=== PATIENT | female | born 1980 | race Caucasian/White ===

== ENCOUNTER 2019-03-03 16:19 | Emergency (ER) | payer OTHER ==
[2019-03-03] MEDS ORDERED: NA CHLORIDE 0.9% 1,000 ML ONE (16:48)
[2019-03-03] MEDS ORDERED: ONDANSETRON 4 MG/2 ML VIAL ONE (16:48)
[2019-03-03] MEDS ORDERED: MORPHINE 4 MG/ML SYR ONE (16:48)
[2019-03-03] MEDS ORDERED: FAMOTIDINE 20 MG/2 ML VIAL IV ONE (16:48)
[2019-03-03 17:08] LABS: Urine Blood NEGATIVE (NEG); Urine Glucose NEGATIVE (NEG); Urine Protein NEGATIVE (NEG); Urine Specific Gravity >1.030 (1.005-1.030)
[2019-03-03 17:13] LABS: Absolute Lymphocytes (CBC) 3.1 K/uL (0.7-4.9); Basophils % 0.8 % (0-1.3); Hematocrit 41.7 % (36.0-45.0); Lymphocytes % 35.8 % (15.3-44.8); MPV 8.7 fL (7.6-11.3); RBC Red Blood Cell Count 4.52 M/uL (3.86-4.86)
[2019-03-03 17:31] LABS: ALT/SGPT 35 U/L (12-78); AST/SGOT 16 U/L (15-37); Albumin 3.8 g/dL (3.4-5.0); Alkaline Phosphatase 65 U/L (45-117); BUN Blood Urea Nitrogen 10 mg/dL (7-18); Bicarbonate 26 mmol/L (21-32); Bilirubin Direct < 0.1 mg/dL (0-0.2); Bilirubin Total 0.2 mg/dL (0.2-1.0); Glucose Level 127 mg/dL (74-106); Lipase 224 U/L (73-393); Potassium 3.9 mmol/L (3.5-5.1); Protein, Total 7.4 g/dL (6.4-8.2); Sodium Level 142 mmol/L (136-145)
--- NOTE | 2019-03-03 17:39 | RAD REPORT ---
EXAM DESCRIPTION: US - Abdomen Exam Limited - 03/03/2019 5:33 pm CLINICAL HISTORY: ABD PAIN COMPARISON: <Comparisons> FINDINGS: The gallbladder demonstrates 16 mm stone inferiorly near the gallbladder neck. The gallbla dder is mildly distended. No pericholecystic fluid or gallbladder wall thickening. The common bile du ct is normal measuring 4 mm. The liver demonstrates no findings of intrahepatic biliary dilatation. IMPRESSION: Cholelithiasis.
--- NOTE | 2019-03-03 17:57 | EDPHYS ---
Physician Documentation [facility] Name: Audrey Obando Age: 38 yrs Sex: Female : 1980 Arrival Date: 03/03/2019 Time: 16:20 Bed 8 Private MD: ED Physician Matias Jackson HPI: 03/03 16:32 This 38 yrs old Female presents to ER via Ambulatory with complaints of cp Abdominal Pain, Epigastric Pain. 16:32 The patient presents with abdominal pain in the epigastric area, in the right upper cp quadrant. 16:32 Onset: The symptoms/episode began/occurred 2 hour(s) ago. The symptoms radiate to right cp back. Associated signs and symptoms: Pertinent positives: nausea, Pertinent negatives: blood in stools, chest pain, constipation, diarrhea, dysuria, fever, shortness of breath, vomiting. The symptoms are described as constant. Severity of pain: in the emergency department the pain is unchanged despite home interventions. Historical: - Allergies: 16:25 Bactrim; la1 - PMHx: 16:25 None; la1 - PSHx: 16:25 None; la1 - Immunization history:: Adult Immunizations up to date. - Social history:: Smoking status: Patient/guardian denies using tobacco. - Ebola Screening: : No symptoms or risks identified at this time. ROS: 16:35 Constitutional: Negative for body aches, chills, fever, poor PO intake. cp 16:35 Eyes: Negative for injury, pain, redness, and discharge. cp 16:35 ENT: Negative for drainage from ear(s), ear pain, sore throat, difficulty swallowing, difficulty handling secretions. 16:35 Cardiovascular: Negative for chest pain, palpitations. 16:35 Respiratory: Negative for cough, shortness of breath, wheezing. 16:35 Abdomen/GI: Positive for abdominal pain, nausea, Negative for vomiting, diarrhea, constipation, anorexia, black/tarry stool, rectal bleeding. 16:35 Back: Positive for radiated pain, of the right mid back. 16:35 : Negative for urinary symptoms. 16:35 Skin: Negative for rash. 16:35 Neuro: Negative for altered mental status, headache, weakness. 16:35 All other systems are negative. Exam: 16:40 Constitutional: The patient appears in no acute distress, alert, awake, cp non-diaphoretic, non-toxic, well developed, well nourished, obese, uncomfortable. 16:40 Head/Face: Normocephalic, atraumatic. cp 16:40 Eyes: Periorbital structures: appear normal, Conjunctiva: normal, no exudate, no injection, Sclera: no appreciated abnormality, Lids and lashes: appear normal, bilaterally. 16:40 ENT: External ear(s): are unremarkable, Nose: is normal, Mouth: Lips: moist, Oral mucosa: pink and intact, moist, Posterior pharynx: is normal, airway is patent, no erythema, no exudate. 16:40 Chest/axilla: Inspection: normal, Palpation: is normal, no crepitus, no tenderness. 16:40 Cardiovascular: Rate: normal, Rhythm: regular. 16:40 Respiratory: the patient does not display signs of respiratory distress, Respirations: normal, no use of accessory muscles, no retractions, no splinting, no tachypnea, labored breathing, is not present, Breath sounds: are clear throughout, no decreased breath sounds, no stridor, no wheezing. 16:40 Abdomen/GI: Inspection: obese Bowel sounds: active, all quadrants, Palpation: soft, in all quadrants, moderate abdominal tenderness, in the epigastric area and right upper quadrant, rebound tenderness, is not appreciated, voluntary guarding, is elicited in the epigastric area and right upper quadrant. 16:40 Back: pain, that is moderate, of the right mid back, ROM is normal. Vital Signs: 16:25 Pulse 89; Resp 16; Temp 98.4; Pulse Ox 98% on R/A; Weight 97.52 kg; Height 5 ft. 3 in. la1 (160.02 cm); 16:27 BP 174 / 114; la1 17:15 BP 166 / 108; Pulse 68; Resp 20; Pulse Ox 100% ; sv 19:00 BP 142 / 89; Pulse 70; Resp 16; Temp 98.3; Pulse Ox 100% on R/A; sg 16:25 Body Mass Index 38.09 (97.52 kg, 160.02 cm) la1 MDM: 16:28 Patient medically screened. ailyn 17:00 Differential diagnosis: cholecystitis, Cholelithiasis, pancreatitis, Peptic Ulcer cp Disease, Perf. Duodenal Ulcer, Perf. Gastric Ulcer, Ureterolithiasis, urinary tract infection. 17:55 Data reviewed: vital signs, nurses notes, lab test result(s), radiologic studies, cp ultrasound, and as a result, I will discharge patient. 17:55 Counseling: I had a detailed discussion with the patient and/or guardian regarding: the cp historical points, exam findings, and any diagnostic results supporting the discharge/admit diagnosis, lab results, radiology results, the need for outpatient follow up, for definitive care, a general surgeon, to return to the emergency department if symptoms worsen or persist or if there are any questions or concerns that arise at home. Response to treatment: the patient's symptoms have markedly improved after treatment, VSS. Pain and nausea improved. Will discharge to home for continued monitoring. 03/03 16:34 Order name: Basic Metabolic Panel; Complete Time: 17:32 cp 03/03 17:32 Interpretation: Normal except: CL 110; GLUC 127; GFR 63. 03/03 16:34 Order name: CBC with Diff; Complete Time: 17:22 03/03 16:34 Order name: Creatinine for Radiology; Complete Time: 17:32 cp 03/03 16:34 Order name: Hepatic Function; Complete Time: 17:32 cp 03/03 17:32 Interpretation: Normal except: GLOB 3.6. 03/03 16:34 Order name: Lipase; Complete Time: 17:33 cp 03/03 17:33 Interpretation: Normal except: LIP 224. 03/03 16:53 Order name: Urine Dipstick--Ancillary (enter results); Complete Time: 17:22 [facility] 03/03 16:34 Order name: US Abdomen Limited: RUQ/epigastric area 03/03 16:53 Order name: Urine --Ancillary (enter results); Complete Time: 17:22 [facility] 03/03 16:34 Order name: IV Saline Lock; Complete Time: 17:33 03/03 16:34 Order name: Labs collected and sent; Complete Time: 16:45 cp 03/03 16:34 Order name: Urine Dipstick-Ancillary (obtain specimen); Complete Time: 16:52 cp 03/03 16:34 Order name: Urine Test (obtain specimen); Complete Time: 16:52 cp 03/03 16:34 Order name: NPO; Complete Time: 16:45 cp Administered Medications: 16:44 Drug: NS 0.9% 1000 ml Route: IV; Rate: 1 bolus; Site: right antecubital; sv 16:44 Drug: Zofran 4 mg Route: IVP; Site: right antecubital; sv 16:46 Drug: morphine 2 mg {Note: Pt stated she did not want anymore pain medication because sv of how it made her feel..} Route: IVP; Site: right antecubital; 16:48 Drug: Pepcid 20 mg Route: IVP; Site: right antecubital; sv 18:40 Drug: Bentyl 20 mg Route: PO; sg 18:40 Drug: GI Cocktail without - (Maalox Suspension 30 ml, Lidocaine Liquid 2 % 15 sg ml) Route: PO; 18:40 Drug: Hydrocodone-Acetaminophen (7.5 mg-325 mg) 1 tabs Route: PO; sg Disposition: 03/04 07:11 Co-signature as Attending Physician, Matias Jackson MD I agree with the assessment and ailyn plan of care. Disposition: 03/03/19 17:56 Discharged to Home. Impression: Cholelithiasis. - Condition is Stable. - Discharge Instructions: Cholelithiasis. - Prescriptions for Bentyl 20 mg Oral Tablet - take 2 tablet by ORAL route every 6 hours As needed; 40 tablet. Zofran 4 mg Oral Tablet - take 1 tablet by ORAL route every 12 hours As needed; 20 tablet. Tramadol 50 mg Oral Tablet - take 1 tablet by ORAL route every 8 hours as needed; 12 tablet. - Medication Reconciliation Form, Thank You Letter, Antibiotic Education, Prescription Opioid Use form. - Follow up: Dae Vazquez MD; When: 1 - 2 days; Reason: Recheck today's complaints. - Problem is new. - Symptoms have improved. Signatures: Dispatcher [employer] EDMariposa Lozoya RN RN sv Gay, Steven, RN RN sg Anderson, Corey, MD MD cha Attema, Lee RN RN la1 Matias Stratton PA PA cp Antunez, Elena, RN RN ea Corrections: (The following items were deleted from the chart) 03/03 19:15 17:56 03/03/2019 17:56 Discharged to Home. Impression: Cholelithiasis. Condition is ea Stable. Forms are Medication Reconciliation Form, Thank You Letter, Antibiotic Education, Prescription Opioid Use. Follow up: Dae Vazquez; When: 1 - 2 days; Reason: Recheck today's complaints. Problem is new. Symptoms have improved. cp
--- NOTE | 2019-03-03 17:57 | ER ---
Nurse's Notes [facility] Name: Audrey Obando Age: 38 yrs Sex: Female : 1980 Arrival Date: 03/03/2019 Time: 16:20 Bed 8 Private MD: Diagnosis: Cholelithiasis Presentation: 03/03 16:24 Presenting complaint: Patient states: RUQ pain that started a couple hours ago, pain is la1 so bad I am nausous. Transition of care: patient was not received from another setting of care. Onset of symptoms was March 03, 2019. Risk Assessment: Do you want to hurt yourself or someone else? Patient reports no desire to harm self or others. Initial Sepsis Screen: Does the patient meet any 2 criteria? No. Patient's initial sepsis screen is negative. Does the patient have a suspected source of infection? No. Patient's initial sepsis screen is negative. Care prior to arrival: None. 16:24 Method Of Arrival: Ambulatory la1 16:24 Acuity: SAKINA 3 la1 Historical: - Allergies: 16:25 Bactrim; la1 - PMHx: 16:25 None; la1 - PSHx: 16:25 None; la1 - Immunization history:: Adult Immunizations up to date. - Social history:: Smoking status: Patient/guardian denies using tobacco. - Ebola Screening: : No symptoms or risks identified at this time. Screenin:40 Abuse screen: Denies threats or abuse. Denies injuries from another. Nutritional sv screening: No deficits noted. Tuberculosis screening: No symptoms or risk factors identified. Fall Risk None identified. Assessment: 16:35 General: Appears in no apparent distress. uncomfortable, well groomed, well developed, sv Behavior is calm, cooperative, appropriate for age. Pain: Complains of pain in epigastric area Pain currently is 10 out of 10 on a pain scale. Pain began 4 hours ago. Is continuous. Neuro: Level of Consciousness is awake, alert, obeys commands, Oriented to person, place, time, situation, Moves all extremities. Full function Gait is steady. Respiratory: Respiratory effort is even, unlabored, Respiratory pattern is regular, symmetrical. GI: Abdomen is obese, Abd is soft X 4 quads Abdomen is tender to palpation in epigastric area Reports epigastric pain, nausea. Derm: Skin is pink, warm \T\ dry. 16:40 Reassessment: Patient appears in no apparent distress at this time. sg Vital Signs: 16:25 Pulse 89; Resp 16; Temp 98.4; Pulse Ox 98% on R/A; Weight 97.52 kg; Height 5 ft. 3 in. la1 (160.02 cm); 16:27 BP 174 / 114; la1 17:15 BP 166 / 108; Pulse 68; Resp 20; Pulse Ox 100% ; sv 19:00 BP 142 / 89; Pulse 70; Resp 16; Temp 98.3; Pulse Ox 100% on R/A; sg 16:25 Body Mass Index 38.09 (97.52 kg, 160.02 cm) la1 ED Course: 16:20 Patient arrived in ED. as 16:25 Triage completed. la1 16:25 Matias Stratton PA is PHCP. cp 16:25 Matias Jackson MD is Attending Physician. cp 16:26 Arm band placed on right wrist. la1 16:40 Patient has correct armband on for positive identification. Placed in gown. Bed in low sv position. Call light in reach. Adult w/ patient. Side rails up X 1. Pulse ox on. NIBP on. Door closed. Head of bed elevated. 16:40 Inserted saline lock: 20 gauge in right antecubital area, using aseptic technique. sv Blood collected. Flushed right antecubital with 5 ml normal saline. 16:44 Burke Arias, BEN is Primary Nurse. sg 17:34 US Abdomen Limited: RUQ/epigastric area In Process Unspecified. EDMS 17:54 Dae Vazquez MD is Referral Physician. cp 19:00 No provider procedures requiring assistance completed. IV discontinued, intact, sg bleeding controlled, No redness/swelling at site. Pressure dressing applied. Administered Medications: 16:44 Drug: NS 0.9% 1000 ml Route: IV; Rate: 1 bolus; Site: right antecubital; sv 16:44 Drug: Zofran 4 mg Route: IVP; Site: right antecubital; sv 16:46 Drug: morphine 2 mg {Note: Pt stated she did not want anymore pain medication because sv of how it made her feel..} Route: IVP; Site: right antecubital; 16:48 Drug: Pepcid 20 mg Route: IVP; Site: right antecubital; sv 18:40 Drug: Bentyl 20 mg Route: PO; sg 18:40 Drug: GI Cocktail without - (Maalox Suspension 30 ml, Lidocaine Liquid 2 % 15 sg ml) Route: PO; 18:40 Drug: Hydrocodone-Acetaminophen (7.5 mg-325 mg) 1 tabs Route: PO; sg Outcome: 17:56 Discharge ordered by MD. cp 19:00 Discharged to home ambulatory, with family. sg 19:00 Condition: good 19:00 Discharge instructions given to patient, family, Instructed on discharge instructions, follow up and referral plans. no drinking with medication, no driving heavy equipment, medication usage, safety practices, Demonstrated understanding of instructions, follow-up care, medications, Prescriptions given X 3. 19:15 Patient left the ED. elizabeth Signatures: Dispatcher [employer] EDMS Mariposa Skinner RN RN Burke Arias RN RN sg Martinez, Amelia as Attema, Lee RN BEN la1 Matias Stratton PA PA cp Antunez, Elena, RN RN ea
[2019-03-03] MEDS ORDERED: HYDROCODONE/APAP 7.5/325 MG TAB ONE (18:50)
[2019-03-03] MEDS ORDERED: MAGNE/ALUM HYDROXD 30 ML UCUP ONE (18:50)
[2019-03-03] MEDS ORDERED: DICYCLOMINE HCL 10 MG CAP ONE (18:50)
[2019-03-03] MEDS ORDERED: LIDOCAINE VISCOUS 2% SOLN 15 ML UDC ONE (18:51)
== END 2019-03-03 19:15 | disposition home or self-care (01) ==
LOC: ER 16:19
DX: K80.20 Calculus of gallbladder without cholecystitis without obstruction (principal); Z88.1 Allergy status to other antibiotic agents
CPT/HCPCS: 85025; 80048; 36415; 81025; 80076; 81003; 83690; 76705; 96375; 96374; 99284; J7030; J2405

== ENCOUNTER 2019-03-16 08:28 | Day surgery (SDC) | payer OTHER ==
[2019-03-15 10:13] LABS: Absolute Lymphocytes (CBC) 2.8 K/uL (0.7-4.9); Basophils % 1.1 % (0-1.3); Hematocrit 40.7 % (36.0-45.0); Lymphocytes % 41.2 % (15.3-44.8); MPV 9.2 fL (7.6-11.3); RBC Red Blood Cell Count 4.36 M/uL (3.86-4.86)
[2019-03-15 10:37] LABS: Potassium 3.8 mmol/L (3.5-5.1)
[2019-03-15 10:40] LABS: ALT/SGPT 34 U/L (12-78); AST/SGOT 10 U/L (15-37); Albumin 3.8 g/dL (3.4-5.0); Alkaline Phosphatase 62 U/L (45-117); Amylase Level 46 U/L (25-115); Bilirubin Direct < 0.1 mg/dL (0-0.2); Bilirubin Total 0.4 mg/dL (0.2-1.0); Lipase 173 U/L (73-393); Protein, Total 7.2 g/dL (6.4-8.2)
[2019-03-16] MEDS ORDERED: Ringers Lactate 1,000 ML IV ONE ×2 (09:15→10:30)
[2019-03-16] MEDS ORDERED: FENTANYL CITR 100 MCG/2 ML ONE (09:31)
[2019-03-16] MEDS ORDERED: ROCURONIUM 50 MG/5 ML VIAL IV ONE (09:31)
[2019-03-16] MEDS ORDERED: LIDOCAINE 2% MPF 5 ML VIAL ONE (09:31)
[2019-03-16] MEDS ORDERED: dexAMETHasone 10 MG/ML VIAL ONE (09:31)
[2019-03-16] MEDS ORDERED: GLYCOPYRROLATE 0.2 MG/ML SYR ONE (09:31)
[2019-03-16] MEDS ORDERED: PROPOFOL 200 MG/20 ML VIAL IV ONE (09:31)
[2019-03-16] MEDS ORDERED: MIDAZOLAM HCL 2 MG/2 ML INJ ONE (09:31)
[2019-03-16] MEDS: CEFOXITIN/SWI 1gm 1 GM/10 ML SYR ONE ×2 (09:42→09:55)
[2019-03-16] MEDS ORDERED: KETOROLAC 30 MG/ML INJ ONE (10:38)
[2019-03-16] MEDS ORDERED: MORPHINE 10 MG/ML VIAL ONE (10:41)
--- NOTE | 2019-03-16 10:45 | P.BOP ---
Preoperative diagnosis: symptomatic cholelithiasis Postoperative diagnosis: same Primary procedure: Laparoscopic cholecystectomy Sponge Maker: TIBURCIO JOHNS (OREMAN) Estimated blood loss: <10cc Specimen: gb Findings: as above Anesthesia: General Complications: None Transferred to: Recovery Room Condition: Good
[2019-03-16] MEDS ORDERED: ONDANSETRON 4 MG/2 ML VIAL ONE (11:00)
[2019-03-16] MEDS ORDERED: HYDROMORPHONE HCL 1 MG/ML INJ ONE (11:22)
[2019-03-16] MEDS ORDERED: CODEINE 30MG/APAP 300MG TAB ONE (12:17)
--- NOTE | 2019-03-17 01:23 | OP ---
Date of Procedure: 03/16/2019 Surgeon: Andrew Hines MD Pastry Baker: TORIN Kirby Preoperative Diagnoses: Symptomatic cholelithiasis, right upper quadrant abdominal pain. Postoperative Diagnoses: Symptomatic cholelithiasis, right upper quadrant abdominal pain. Procedure: Laparoscopic cholecystectomy. Estimated Blood Loss: Less than 10 cc. Specimen: Gallbladder. Finding: As above. Anesthesia: General plus local. Indications: This is the case of a 38-year-old patient, who comes to us with above diagnosis with th e procedure dictated above. Benefits, alternatives, and risks were explained to the patient, which i ncluded but not limited to infection, bleeding, damage to adjacent structures, anesthesia complicatio n, choledocholithiasis, bile leak, pancreatitis, KS, and even . She also understands this may n ot relieve any symptoms. She might need more than one surgical intervention. She understood, signed a consent. Description Of Procedure: Patient was brought to the operating room, placed in supine position. Ane sthesia was done without complication. Abdominal area was prepped and draped in a sterile fashion. Marcaine 0.5% was injected for local anesthetic, followed by sharp incision of the skin in the infrau mbilical region. Incision was carried down to fascia, which was opened under direct vision. Periton eum was encountered, opened under direct vision. Vicryl #1 placed inside the fascia. Christiano trocar was carefully introduced. No bleeding was obtained. We placed 3 more trocars, 5 mm each, one of the m in the right upper quadrant. I put a grasper in the fundus of the gallbladder, another grasper in the infundibulum, retracted the gallbladder in the inferolateral fashion exposing the triangle of Junior ot, obtaining critical view of safety. Cystic duct and cystic artery were clearly isolated free circ umferentially and the connection between those and the gallbladder were clearly identified. I procee ded to ligate those by using at least 3 clips proximal, 1 clip distal, and ligation in the middle. S david was done with the cystic artery. No bile leak. No bleeding. The gallbladder was removed from t he liver using Bovie cauterizer and removed from abdominal cavity using an EndoCatch through the umbi lical incision. The area was inspected once again. No bile leak. No bleeding. After irrigation an d suction, clips were intact with no bile leak and no bleeding. At that moment, I proceeded to remov e the trocars under direct vision, deflated the pneumoperitoneum, closed the fascia with #1 Vicryl, i rrigated the subcutaneous tissue and closed that with 3-0 chromic and the skin in a subcuticular fash ion with 3-0 chromic and a Steri-Strip on top. Sponge count and instrument count were correct. Marisela ent tolerated the procedure well. Patient was sent to Recovery in stable condition. DHEERAJ/ECHO Voice ID: [id number] Report ID: [id number]
--- NOTE | 2019-03-17 01:26 | DS ---
Date of Discharge: 03/16/2019 Diagnoses: Acute cholecystis, symptomatic cholelithiasis. Procedure: Laparoscopic cholecystectomy. Disposition: Home. Activity: As tolerated. No heavy lifting. Followup: Follow up in my office in 1 week. Call for appointment [phone]. Keep area dry for 48 ho urs, then may shower. Keep Steri-Strips intact. Medications: See orders. DHEERAJ/ECHO Voice ID: [id number] Report ID: [id number]
== END 2019-03-16 13:20 | disposition home or self-care (01) ==
LOC: OR 08:28
PROVIDERS: ATTEND Surgery
PROC: 0FT44ZZ Resection of Gallbladder, Percutaneous Endoscopic Approach (ICD-10-PCS; principal; 2019-03-16 10:45)
DX: K80.10 Calculus of gallbladder with chronic cholecystitis without obstruction (principal); E78.00 Pure hypercholesterolemia, unspecified; Z88.3 Allergy status to other anti-infective agents
CPT/HCPCS: 85025; 80048; 36415; 82150; 81025; 80076; 88304; 83690; 47562; J2704; J2250; J3010; J1100; J1170; J2405

== ENCOUNTER 2019-08-01 15:18 | Emergency (ER) | payer OTHER ==
--- NOTE | 2019-08-01 15:57 | RAD REPORT ---
EXAM DESCRIPTION: CT - Head C Spine Mpr Wo Con - 08/01/2019 3:44 pm CLINICAL HISTORY: Head and neck injury status post fall. Head and neck pain COMPARISON: None. TECHNIQUE: Computed axial tomography of the head and cervical spine was obtained. Sagittal and coronal reconstruction was performed. All CT scans are performed using dose optimization technique as appropriate and may include automated exposure control or mA/KV adjustment according to patient size. FINDINGS: Mild cerebellar tonsillar ectopia An intracranial bleed is not seen. The ventricles are normal in caliber. An extra-axial fluid collect ion is not noted.Fluid within the visualized sinuses and mastoids is not seen A cervical fracture is not visualized. No dislocation is noted. Spondylosis is present IMPRESSION: No acute intracranial abnormality is seen. A cervical fracture is not visualized. If the patient continues to have symptoms to suggest intracra nial /spinal cord pathology then MRI would be recommended
--- NOTE | 2019-08-01 16:17 | RAD REPORT ---
EXAM DESCRIPTION: CT - Facial Bones W/ Mpr - 08/01/2019 3:44 pm CLINICAL HISTORY: Facial injury status post fall with facial pain COMPARISON: none TECHNIQUE: Computed axial tomography of the face was obtained. Coronal and sagittal reconstruction w as performed. All CT scans are performed using dose optimization technique as appropriate and may include automated exposure control or mA/KV adjustment according to patient size. FINDINGS: A fracture is not seen. A TMJ dislocation is not noted. The globes are intact. Fluid within the sinuses is not seen. IMPRESSION: Negative for a facial fracture.
--- NOTE | 2019-08-01 16:37 | ER ---
Nurse's Notes [facility] Name: Audrey Obando Age: 39 yrs Sex: Female : 1980 Arrival Date: 08/01/2019 Time: 15:19 Bed 20 Private MD: Diagnosis: Superficial injury of head;Fall on same level from slipping, tripping and stumbling Presentation: 08/01 15:23 Presenting complaint: Patient states: i tripped in the restroom at work and fell on my mg2 head and hit the floor tile. positive LOC for 2 sec. Transition of care: patient was not received from another setting of care. Mechanism of Injury: resulted from a fall, from a standing position. Onset of symptoms was August 01, 2019 at 14:30. Risk Assessment: Do you want to hurt yourself or someone else? Patient reports no desire to harm self or others. Initial Sepsis Screen: Does the patient meet any 2 criteria? No. Patient's initial sepsis screen is negative. Does the patient have a suspected source of infection? No. Patient's initial sepsis screen is negative. Care prior to arrival: None. 15:23 Method Of Arrival: Ambulatory mg2 15:23 Acuity: SAKINA 3 mg2 Triage Assessment: 15:30 General: Appears in no apparent distress. comfortable, Behavior is cooperative, bp appropriate for age, anxious. Pain: Complains of pain in right [place]. EENT: No deficits noted. Neuro: Level of Consciousness is awake, alert, obeys commands, Oriented to person, place, time, situation, Appropriate for age Reports headache. Cardiovascular: No deficits noted. Respiratory: No deficits noted. GI: No signs and/or symptoms were reported involving the gastrointestinal system. : No signs and/or symptoms were reported regarding the genitourinary system. Derm: No deficits noted. Musculoskeletal: No deficits noted. 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 - Social history:: Smoking status: Patient denies any tobacco usage or history of. Patient uses alcohol, only on a social basis. Patient/guardian denies using street drugs, IV drugs. - Ebola Screening: : No symptoms or risks identified at this time. Screenin:30 Abuse screen: Denies threats or abuse. Denies injuries from another. bp 15:30 Nutritional screening: No deficits noted. Tuberculosis screening: No symptoms or risk bp factors identified. Fall Risk Fall in past 12 months (25 points). No secondary diagnosis (0 pts). No IV (0 pts). Ambulatory Aid- None/Bed Rest/Nurse Assist (0 pts). Gait- Normal/Bed Rest/Wheelchair (0 pts) Mental Status- Oriented to own ability (0 pts). Total Nolasco Fall Scale indicates Low Risk Score (25-44 pts). Fall prevention measures have been instituted. Side Rails Up X 2 Placed close to Nursing Station Frequent Obs/Assesments occuring Family Present and informed to notify staff if they need to leave bedside As available Patient and Family Educated on Fall Prevention Program and strategies. Assessment: 15:30 General: SEE TRIAGE NOTE. bp 16:42 Reassessment: PT D/C HOME AMBULATORY WITH FAMILY, DX WITH SUPERFICIAL HEAD INJURY. bp Vital Signs: 15:25 BP 133 / 91; Pulse 77; Resp 18; Temp 98.3; Pulse Ox 100% on R/A; Weight 90.72 kg; mg2 Height 5 ft. 3 in. (160.02 cm); Pain 6/10; 16:30 BP 131 / 85; Pulse 75; Resp 17; Temp 98.5; Pulse Ox 99% ; bp 15:25 Body Mass Index 35.43 (90.72 kg, 160.02 cm) mg2 [place] Coma Score: 15:23 Eye Response: spontaneous(4). Verbal Response: oriented(5). Motor Response: obeys mg2 commands(6). Total: 15. 16:00 Eye Response: spontaneous(4). Verbal Response: oriented(5). Motor Response: obeys kb commands(6). Total: 15. NIH Stroke Scale Scores: 16:00 NIHSS Score: 0 kb ED Course: 15:19 Patient arrived in ED. ds1 15:25 Triage completed. mg2 15:28 Arm band placed on. mg2 15:30 Patient has correct armband on for positive identification. Bed in low position. Call bp light in reach. Side rails up X2. 15:30 No provider procedures requiring assistance completed. Patient did not have IV access bp during this emergency room visit. 15:32 [facility] kb 15:32 Chicho Lau MD is Attending Physician. kb 15:45 CT Head C Spine In Process Unspecified. EDMS 15:45 CT Facial Bones W/O Con In Process Unspecified. EDMS 15:56 Fredrick Mauro, RN is Primary Nurse. mg2 Administered Medications: No medications were administered Outcome: 15:30 Discharged to home ambulatory, with family. bp 15:30 Condition: stable 15:30 Discharge instructions given to patient, Instructed on discharge instructions, follow up and referral plans. Demonstrated understanding of instructions, follow-up care. 16:34 Discharge ordered by MD. kb 16:47 Patient left the ED. bp NIH Stroke Scale - NIH Stroke Score Date: 08/01/2019 Time: 16:00 Total Score = 0 1a. Level of Consciousness (LOC) - 0(Alert) 1b. Level of Consciousness (LOC) (Year \T\ Age) - 0(Both) 1c. LOC Commands (Open \T\ Closes Eyes/Forcer Maker) - 0(Both) 2. Best Gaze (Lateral Gaze Paresis) - 0(Normal) 3. Visual Field Loss - 0(No visual loss) 4. Facial Palsy - 0(Normal) 5a. Left Arm: Motor (10-second hold) - 0(No drift) 5b. Right Arm: Motor (10-second hold) - 0(No drift) 6a. Left Leg: Motor (5-second hold - always test supine) - 0(No drift) 6b. Right Leg: Motor (5-second hold - always test supine) - 0(No drift) 7. Limb Ataxia (finger/nose \T\ heel/cottrell - test with eyes open) - 0(Absent) 8. Sensory Loss (pinprick arms/legs/face) - 0(Normal) 9. Best Language: Aphasia (description/naming/reading) - 0(No aphasia) 10. Dysarthria (speech clarity - read or repeat words) - 0(Normal) 11. Extinction and Inattention (visual/tactile/auditory/spatial/personal) - 0(No abnormality) Initials: kb Signatures: Dispatcher [employer] EDDC Sarah Frederick FNP-C FNP-Ckb Sanford, Demi ds1 Vj Latham, RN RN bp Fredrick Mauro, RN RN mg2
--- NOTE | 2019-08-01 16:37 | EDPHYS ---
Physician Documentation [facility] Name: Audrey Obando Age: 39 yrs Sex: Female : 1980 Arrival Date: 08/01/2019 Time: 15:19 Bed 20 Private MD: ED Physician Chicho Lau HPI: 08/01 16:01 This 39 yrs old Female presents to ER via Ambulatory with complaints of Head kb Injury-Adult, Fall Injury. 16:01 The patient has not experienced similar symptoms in the past. The patient has not kb recently seen a physician. 16:02 Details of fall: The patient fell from an upright position. Onset: The symptoms/episode kb began/occurred just prior to arrival. Associated injuries: The patient sustained injury to the head, hematoma, pain. Severity of symptoms: At their worst the symptoms were moderate, in the emergency department the symptoms are unchanged. Pt reports she tripped over a tile in the bathroom and fell forward hitting her head on the wall, then on the ground. "I think I may have blacked out for a couple of seconds.". 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 - Social history:: Smoking status: Patient denies any tobacco usage or history of. Patient uses alcohol, only on a social basis. Patient/guardian denies using street drugs, IV drugs. - Ebola Screening: : No symptoms or risks identified at this time. ROS: 16:00 Constitutional: Negative for fever, chills, and weight loss, Eyes: Negative for injury, kb pain, redness, and discharge, ENT: Negative for injury, pain, and discharge, Neck: Negative for injury, pain, and swelling, Cardiovascular: Negative for chest pain, palpitations, and edema, Respiratory: Negative for shortness of breath, cough, wheezing, and pleuritic chest pain, Abdomen/GI: Negative for abdominal pain, nausea, vomiting, diarrhea, and constipation, Back: Negative for injury and pain, MS/Extremity: Negative for injury and deformity, Skin: Negative for injury, rash, and discoloration. 16:00 Neuro: Positive for headache, loss of consciousness. Exam: 16:00 Constitutional: This is a well developed, well nourished patient who is awake, alert, kb and in no acute distress. Eyes: Pupils equal round and reactive to light, extra-ocular motions intact. Lids and lashes normal. Conjunctiva and sclera are non-icteric and not injected. Cornea within normal limits. Periorbital areas with no swelling, redness, or edema. ENT: Nares patent. No nasal discharge, no septal abnormalities noted. Tympanic membranes are normal and external auditory canals are clear. Oropharynx with no redness, swelling, or masses, exudates, or evidence of obstruction, uvula midline. Mucous membranes moist. Neck: Trachea midline, no thyromegaly or masses palpated, and no cervical lymphadenopathy. Supple, full range of motion without nuchal rigidity, or vertebral point tenderness. No Meningismus. Chest/axilla: Normal chest wall appearance and motion. Nontender with no deformity. No lesions are appreciated. Cardiovascular: Regular rate and rhythm with a normal S1 and S2. No gallops, murmurs, or rubs. Normal PMI, no JVD. No pulse deficits. Respiratory: Lungs have equal breath sounds bilaterally, clear to auscultation and percussion. No rales, rhonchi or wheezes noted. No increased work of breathing, no retractions or nasal flaring. Abdomen/GI: Soft, non-tender, with normal bowel sounds. No distension or tympany. No guarding or rebound. No evidence of tenderness throughout. Back: No spinal tenderness. No costovertebral tenderness. Full range of motion. Skin: Warm, dry with normal turgor. Normal color with no rashes, no lesions, and no evidence of cellulitis. MS/ Extremity: Pulses equal, no cyanosis. Neurovascular intact. Full, normal range of motion. Neuro: Awake and alert, GCS 15, oriented to person, place, time, and situation. Cranial nerves II-XII grossly intact. Motor strength 5/5 in all extremities. Sensory grossly intact. Cerebellar exam normal. Normal gait. 16:00 Head/face: Noted is no obvious of injury or deformity except hematoma, that is mild, that is moderate, of the right orthodoxy. Vital Signs: 15:25 BP 133 / 91; Pulse 77; Resp 18; Temp 98.3; Pulse Ox 100% on R/A; Weight 90.72 kg; mg2 Height 5 ft. 3 in. (160.02 cm); Pain 6/10; 16:30 BP 131 / 85; Pulse 75; Resp 17; Temp 98.5; Pulse Ox 99% ; bp 15:25 Body Mass Index 35.43 (90.72 kg, 160.02 cm) mg2 NIH Stroke Scale Scores: 16:00 NIHSS Score: 0 kb [place] Coma Score: 15:23 Eye Response: spontaneous(4). Verbal Response: oriented(5). Motor Response: obeys mg2 commands(6). Total: 15. 16:00 Eye Response: spontaneous(4). Verbal Response: oriented(5). Motor Response: obeys kb commands(6). Total: 15. MDM: 15:32 Patient medically screened. kb 16:00 Data reviewed: vital signs, nurses notes. Data interpreted: Pulse oximetry: on room air kb is 100 %. Interpretation: normal. Counseling: I had a detailed discussion with the patient and/or guardian regarding: the historical points, exam findings, and any diagnostic results supporting the discharge/admit diagnosis, radiology results, the need for outpatient follow up, a family practitioner, to return to the emergency department if symptoms worsen or persist or if there are any questions or concerns that arise at home. 08/01 15:32 Order name: CT Head C Spine; Complete Time: 16:04 kb 08/01 15:36 Order name: CT Facial Bones W/O Con; Complete Time: 16:22 kb Administered Medications: No medications were administered Disposition: 08/02 08:02 Co-signature as Attending Physician, Chicho Lau MD I agree with the assessment and tw4 plan of care. Disposition: 08/01/19 16:34 Discharged to Home. Impression: Superficial injury of head, Fall on same level from slipping, tripping and stumbling. - Condition is Stable. - Discharge Instructions: Hematoma, [id number], Head Injury, Adult, [id number]. - Medication Reconciliation Form, Thank You Letter, Antibiotic Education, Prescription Opioid Use form. - Follow up: Emergency Department; When: As needed; Reason: Worsening of condition. Follow up: Private Physician; When: 2 - 3 days; Reason: Recheck today's complaints, Continuance of care, Re-evaluation by your physician. NIH Stroke Scale - NIH Stroke Score Date: 08/01/2019 Time: 16:00 Total Score = 0 1a. Level of Consciousness (LOC) - 0(Alert) 1b. Level of Consciousness (LOC) (Year \\T\\ Age) - 0(Both) 1c. LOC Commands (Open \\T\\ Closes Eyes/Glaze Mixer) - 0(Both) 2. Best Gaze (Lateral Gaze Paresis) - 0(Normal) 3. Visual Field Loss - 0(No visual loss) 4. Facial Palsy - 0(Normal) 5a. Left Arm: Motor (10-second hold) - 0(No drift) 5b. Right Arm: Motor (10-second hold) - 0(No drift) 6a. Left Leg: Motor (5-second hold - always test supine) - 0(No drift) 6b. Right Leg: Motor (5-second hold - always test supine) - 0(No drift) 7. Limb Ataxia (finger/nose \\T\\ heel/cottrell - test with eyes open) - 0(Absent) 8. Sensory Loss (pinprick arms/legs/face) - 0(Normal) 9. Best Language: Aphasia (description/naming/reading) - 0(No aphasia) 10. Dysarthria (speech clarity - read or repeat words) - 0(Normal) 11. Extinction and Inattention (visual/tactile/auditory/spatial/personal) - 0(No abnormality) Initials: kb Signatures: Dispatcher [employer] EDNE Sarah Frederick, CLAIMS COUNSEL-C CLAIMS COUNSEL-CkVj Cuellar, BEN RN Chicho Mohamud MD MD tw4 Fredrick Mauro RN RN mg2 Corrections: (The following items were deleted from the chart) 08/01 16:47 16:34 08/01/2019 16:34 Discharged to Home. Impression: Superficial injury of bp head; Fall on same level from slipping, tripping and stumbling. Condition is Stable. Discharge Instructions: Hematoma, [id number], Head Injury, Adult, [id number]. Forms are Medication Reconciliation Form, Thank You Letter, Antibiotic Education, Prescription Opioid Use. Follow up: Emergency Department; When: As needed; Reason: Worsening of condition. Follow up: Private Physician; When: 2 - 3 days; Reason: Recheck today's complaints, Continuance of care, Re-evaluation by your physician. kb
[2019-08-01 19:51] VITALS: BP 131/85; TEMP 98.5; O2SAT 99
== END 2019-08-01 16:47 | disposition home or self-care (01) ==
LOC: ER 15:18
DX: S00.93XA Contusion of unspecified part of head, initial encounter (principal); W01.198A Fall on same level from slipping, tripping and stumbling with subsequent striking against other object, initial encounter; Y93.89 Activity, other specified; Y92.9 Unspecified place or not applicable; F41.9 Anxiety disorder, unspecified; Z88.1 Allergy status to other antibiotic agents
CPT/HCPCS: 70450; 70486; 72125; 76377; 99283

== ENCOUNTER 2020-10-21 16:53 | Emergency (ER) | payer OTHER ==
--- OUTSIDE RECORDS SUMMARY | 2020-10-21 16:55 | XMS REPORT | Continuity of Care Document ---
:1980 Author Organization [facility] t Address [address] [place] [address] [address]. [address] [place] [address] Care Team Providers Name Role Phone Lab, Fam Pob I Attending Clinician Unavailable Problems This patient has no known problems. Allergies, Adverse Reactions, Alerts This patient has no known allergies or adverse reactions. Medications This patient has no known medications. Procedures This patient has no known procedures. Encounters Start End Encounter Admission Attending Care Care Encounter Source Date/Time Date/Time Type Type Clinicians Facility Department ID 2020-03-01 2020-03-01 Laboratory Lab, [facility] [id number] 14:04:36 14:21:17 Only Fam Pob I [facility] [id number] [place] [id number] Jose Angel [id number] [address] Results This patient has no known results.
--- NOTE | 2020-10-21 17:47 | RAD REPORT ---
EXAM DESCRIPTION: RAD - Ankle Left 3 View - 10/21/2020 5:38 pm CLINICAL HISTORY: Pain;Swelling COMPARISON: No comparisons FINDINGS: Moderate soft tissue swelling is seen adjacent to the lateral malleolus. Small plantar germania caneal spur is seen. No acute fracture or dislocation.
--- NOTE | 2020-10-21 17:52 | ER ---
Nurse's Notes [facility] Name: Audrey Obando Age: 40 yrs Sex: Female : 1980 Arrival Date: 10/21/2020 Time: 16:55 Bed 15 Private MD: Diagnosis: Sprain of unspecified ligament of left ankle Presentation: 10/21 17:05 Chief complaint: Patient states: left ankle injury after jumping rope and rolled her sv ankle last night. Coronavirus screen: Client denies travel out of the [place] in the last 14 days. At this time, the client does not indicate any symptoms associated with coronavirus-19. Ebola Screen: No symptoms or risks identified at this time. Risk Assessment: Do you want to hurt yourself or someone else? Patient reports no desire to harm self or others. Onset of symptoms was October 20, 2020. 17:05 Method Of Arrival: Wheelchair sv 17:05 Acuity: SAKINA 4 sv 17:06 Initial Sepsis Screen: Does the patient meet any 2 criteria? No. Patient's initial sv sepsis screen is negative. Does the patient have a suspected source of infection? No. Patient's initial sepsis screen is negative. Triage Assessment: 17:05 General: Appears in no apparent distress. uncomfortable, Behavior is calm, cooperative, sv appropriate for age. Pain: Complains of pain in left lateral ankle. Neuro: Level of Consciousness is awake, alert, obeys commands, Oriented to person, place, time, situation. Respiratory: Respiratory effort is even, unlabored. Musculoskeletal: Swelling present in left lateral ankle. 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 - Social history:: Smoking status: Patient denies any tobacco usage or history of. Screenin:31 Abuse screen: Denies threats or abuse. Nutritional screening: No deficits noted. ll1 Tuberculosis screening: No symptoms or risk factors identified. Fall Risk None identified. Gait- Impaired (20 pts.). Total Nolasco Fall Scale indicates No Risk (0-24 pts). Assessment: 17:11 Reassessment: Received VO from Dr Wing for xray. sv 18:00 Reassessment: No changes from previously documented assessment. Patient and/or family ll1 updated on plan of care and expected duration. Pain level reassessed. Patient is alert, oriented x 3, equal unlabored respirations, skin warm/dry/pink. 18:31 General: Appears in no apparent distress. Behavior is calm, cooperative, appropriate ll1 for age. Pain: Complains of pain in left ankle. Musculoskeletal: Circulation, motion, and sensation intact. Capillary refill < 3 seconds. Vital Signs: 17:06 BP 125 / 87; Pulse 76; Resp 18; Temp 98.6(TE); Pulse Ox 99% ; Weight 74.84 kg; Height 5 sv ft. 3 in. (160.02 cm); Pain 7/10; 18:29 BP 123 / 90; Pulse 59; Resp 17; Pain 4/10; ll1 17:06 Body Mass Index 29.23 (74.84 kg, 160.02 cm) sv ED Course: 16:55 Patient arrived in ED. ds1 17:05 Arm band placed on. sv 17:06 Triage completed. sv 17:27 Victorino Dukes, SANDER is PHCP. pm1 17:27 Solomon Wing MD is Attending Physician. pm1 17:28 Terry Knight, BEN is Primary Nurse. ll1 17:38 Ankle Left 3 View XRAY In Process Unspecified. EDMS 18:16 Verbal reassurance given. jp3 18:16 Crutch training done. [place] wrap to left ankle Orthoglass splint: stirrup splint applied jp3 on left leg. 18:32 No provider procedures requiring assistance completed. Patient did not have IV access ll1 during this emergency room visit. 18:33 Patient has correct armband on for positive identification. Bed in low position. Call ll1 light in reach. Side rails up X 1. Pulse ox on. NIBP on. Administered Medications: 17:59 Drug: [place] (HYDROcodone-acetaminophen) 5 mg-325 mg 1 tabs Route: PO; ll1 18:29 Follow up: Response: No adverse reaction; Pain is decreased; RASS: Alert and Calm (0) ll1 Outcome: 17:51 Discharge ordered by . pm1 18:32 Discharged to home via wheelchair. ll1 18:32 Condition: stable 18:32 Discharge instructions given to patient, Instructed on discharge instructions, follow up and referral plans. medication usage, crutch walking, Demonstrated understanding of instructions, follow-up care, medications, crutch walking, splint care, Prescriptions given X 1. 18:33 Patient left the ED. ll1 Signatures: Dispatcher [employer] EDMariposa Lozoya RN RN Xiomy Marquez ds1 Victorino Dukes, SANDER INVESTMENT UNDERWRITER pm1 Mayank Painter jp3 Terry Knight RN RN ll1 Corrections: (The following items were deleted from the chart) 17:08 17:06 Pulse 76bpm; Resp 18bpm; Pulse Ox 99%; Temp 98.6F; 74.84 kg; Height 5 ft. 3 in.; sv BMI: 29.2; Pain 7/10; sv
--- NOTE | 2020-10-21 17:52 | EDPHYS ---
Physician Documentation [facility] Name: Audrey Obando Age: 40 yrs Sex: Female : 1980 Arrival Date: 10/21/2020 Time: 16:55 Bed 15 Private MD: ED Physician Solomon Wing HPI: 10/21 17:57 This 40 yrs old Female presents to ER via Wheelchair with complaints of Ankle pm1 Injury. 17:57 The patient presents with pain, that is acute, swelling. The complaints affect the left pm1 ankle. Onset: The symptoms/episode began/occurred today. 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 The patient can partially bear weight on the affected extremity. the patient is able to ambulate. Associated signs and symptoms: Pertinent positives: swelling, Pertinent negatives: numbness, tingling. Modifying factors: The symptoms are alleviated by elevation of extremity, the symptoms are aggravated by weight bearing, movement. Severity of symptoms: in the emergency department the symptoms are unchanged. The patient has not experienced similar symptoms in the past. The patient has not recently seen a physician. Patient was jump roping on a parachutist/combatant diver qualified and she mis-stepped and rolled her ankle. 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 - Social history:: Smoking status: Patient denies any tobacco usage or history of. ROS: 17:57 Constitutional: Negative for fever, chills, and weight loss, Cardiovascular: Negative pm1 for chest pain, palpitations, and edema, Respiratory: Negative for shortness of breath, cough, wheezing, and pleuritic chest pain. 17:57 Skin: Negative for injury, rash, and discoloration. 17:57 Neuro: Negative for headache, weakness, numbness, tingling, and seizure. 17:57 MS/extremity: Positive for pain, swelling, tenderness, of the left lateral ankle, Negative for decreased range of motion, deformity. Exam: 17:57 Constitutional: This is a well developed, well nourished patient who is awake, alert, pm1 and in no acute distress. Head/Face: Normocephalic, atraumatic. 17:57 Skin: Warm, dry with normal turgor. Normal color with no rashes, no lesions, and no evidence of cellulitis. 17:57 Cardiovascular: Rate: normal, Rhythm: regular, Pulses: no pulse deficits are appreciated. 17:57 Respiratory: Exam negative for acute changes, respiratory distress, shortness of breath. 17:57 Musculoskeletal/extremity: Extremities: grossly normal except: noted in the left lateral ankle: pain, swelling, tenderness, There is no evidence of decreased ROM, deformity. 17:57 Neuro: Exam negative for acute changes, Orientation: is normal, Mentation: is normal, Motor: is normal, moves all fours. Vital Signs: 17:06 BP 125 / 87; Pulse 76; Resp 18; Temp 98.6(TE); Pulse Ox 99% ; Weight 74.84 kg; Height 5 sv ft. 3 in. (160.02 cm); Pain 7/10; 18:29 BP 123 / 90; Pulse 59; Resp 17; Pain 4/10; ll1 17:06 Body Mass Index 29.23 (74.84 kg, 160.02 cm) sv MDM: 17:29 Patient medically screened. pm1 17:51 Data reviewed: vital signs. Data interpreted: Pulse oximetry: on room air is 99 %. pm1 Interpretation: normal. Counseling: I had a detailed discussion with the patient and/or guardian regarding: the historical points, exam findings, and any diagnostic results supporting the discharge/admit diagnosis, radiology results, the need for outpatient follow up, for definitive care, a orthopedic surgeon, to return to the emergency department if symptoms worsen or persist or if there are any questions or concerns that arise at home. 10/21 17:11 Order name: Ankle Left 3 View XRAY; Complete Time: 17:50 sv 10/21 17:45 Order name: Ice pack; Complete Time: 17:47 pm1 10/21 17:46 Order name: Splint - Ankle: Orthoglass: Stirrup; Complete Time: 18:16 pm1 10/21 17:46 Order name: Crutches; Complete Time: 18:16 pm1 Administered Medications: 17:59 Drug: Bushnell (HYDROcodone-acetaminophen) 5 mg-325 mg 1 tabs Route: PO; ll1 18:29 Follow up: Response: No adverse reaction; Pain is decreased; RASS: Alert and Calm (0) ll1 Disposition: 18:57 Co-signature as Attending Physician, Solomon Wing MD. rn Disposition: 10/21/20 17:51 Discharged to Home. Impression: Sprain of unspecified ligament of left ankle. - Condition is Stable. - Discharge Instructions: Ankle Sprain, Cast or Splint Care, Adult, Crutch Use. - Prescriptions for Tylenol- Codeine #3 300-30 mg Oral Tablet - take 2 tablets by ORAL route every 4-6 hours As needed; 20 tablet. - Medication Reconciliation Form, Thank You Letter, Antibiotic Education, Prescription Opioid Use form. - Follow up: Emergency Department; When: As needed; Reason: Worsening of condition. Follow up: Private Physician; When: 2 - 3 days; Reason: Recheck today's complaints, Continuance of care, Re-evaluation by your physician. - Problem is new. - Symptoms have improved. Signatures: Dispatcher [employer] EDMariposa Lozoya, RN Solomon Cantrell MD MD rn Marinas, Patrick, SANDER LAMBSKIN TRIMMER pm1 Terry Knight RN RN ll1 Corrections: (The following items were deleted from the chart) 18:33 17:51 10/21/2020 17:51 Discharged to Home. Impression: Sprain of unspecified ligament ll1 of left ankle. Condition is Stable. Forms are Medication Reconciliation Form, Thank You Letter, Antibiotic Education, Prescription Opioid Use. Follow up: Emergency Department; When: As needed; Reason: Worsening of condition. Follow up: Private Physician; When: 2 - 3 days; Reason: Recheck today's complaints, Continuance of care, Re-evaluation by your physician. Problem is new. Symptoms have improved. pm1
[2020-10-21] MEDS ORDERED: HYDROCODONE/APAP 5/325 MG TAB ONE (18:08)
[2020-10-21 19:02] VITALS: BP 125/87; TEMP 98.6; O2SAT 99
== END 2020-10-21 18:33 | disposition home or self-care (01) ==
LOC: ER 16:53
DX: S93.402A Sprain of unspecified ligament of left ankle, initial encounter (principal); X58.XXXA Exposure to other specified factors, initial encounter; Y93.56 Activity, jumping rope; Y92.008 Other place in unspecified non-institutional (private) residence as the place of occurrence of the external cause; Z88.1 Allergy status to other antibiotic agents
CPT/HCPCS: 99284

== ENCOUNTER 2023-05-28 06:04 | Day surgery (SDC) | payer BC ==
[2023-05-27 13:09] LABS: Absolute Lymphocytes (CBC) 2.4 K/uL (0.7-4.9); Hematocrit 40.4 % (36.0-45.0); Lymphocytes % 35.7 % (15.3-44.8); MCV 94.4 fL (80-100); Platelets 296 thou/uL (152-406); RBC Red Blood Cell Count 4.28 M/uL (3.86-4.86)
[2023-05-27 13:40] LABS: Specific Gravity 1.006 (1.005-1.030); Urine Bilirubin NEGATIVE (Negative); Urine Blood Negative (Negative); Urine Clarity Clear (Clear); Urine Color Colorless (Yellow); Urine Glucose NEGATIVE (Negative); Urine Protein NEGATIVE (Negative); Urine Urobilinogen Normal (Normal)
[2023-05-28] MEDS ORDERED: BUPIVACAINE 0.25% PF 30 ML VIAL ONE (06:31)
[2023-05-28] MEDS ORDERED: HYDROMORPHONE HCL 2 MG/ML inj ONE (06:50)
[2023-05-28] MEDS ORDERED: LIDOCAINE 2% MPF 5 ML VIAL ONE (06:55)
[2023-05-28] MEDS ORDERED: propofoL 200 MG/20 ML VIAL IV ONE (06:55)
[2023-05-28] MEDS ORDERED: SCOPOLAMINE HYDROBROMIDE PATCH TD ONE (06:56)
[2023-05-28] MEDS ORDERED: dexAMETHasone 4 MG/ML VIAL ONE (07:26)
[2023-05-28] MEDS ORDERED: GLYCOPYRROLATE 0.2 MG/ML SYR ONE ×2 (08:04→08:14)
[2023-05-28] MEDS ORDERED: EPHEDRINE SULF 50 MG/ML VIAL ONE (08:07)
[2023-05-28] MEDS ORDERED: KETOROLAC 30 MG/ML INJ ONE (08:13)
[2023-05-28] MEDS ORDERED: MEPERIDINE HCL 25 MG/ML SYR IM PRN (08:17)
[2023-05-28] MEDS ORDERED: HYDROCODONE/APAP 5/325 MG TAB PO PRN (08:17)
[2023-05-28] MEDS ORDERED: IBUPROFEN 200 MG TAB PO PRN (08:17)
[2023-05-28] MEDS ORDERED: PROMETHAZINE INJ 25 MG/ML AMP IV PRN (08:17)
--- NOTE | 2023-05-28 08:21 | P.BOP ---
Preoperative diagnosis: AUB-O/A, dysmenorrhea, PMDD Postoperative diagnosis: same Primary procedure: Hystersocopy ablation, laparoscopy bilateral salpingectomy [employer]: NONE,NONE Estimated blood loss: min Specimen: bilateral tubes Findings: normal ovaries and tubes, CL=6.5/W=4.6/P=167/T=51sec Anesthesia: General Complications: None Transferred to: Recovery Room Condition: Good
[2023-05-28] MEDS ORDERED: Mastisol Adhesive Liq ONE (08:24)
[2023-05-28] MEDS ORDERED: MONTELUKAST 10 MG TAB PO SCH (09:00)
[2023-05-28] MEDS ORDERED: FLUOXETINE 20 MG CAP PO SCH (09:00)
[2023-05-28] MEDS ORDERED: BUPROPION HCL XL 150 MG TAB PO SCH (09:00)
[2023-05-28] MEDS ORDERED: HYDROCODONE/APAP 5/325 MG TAB ONE (09:44)
[2023-05-28 09:48] VITALS: TEMP 97; O2SAT 95
--- NOTE | 2023-05-28 10:08 | OP ---
Date of Procedure: 05/28/2023 Surgeon: Josy Montejo MD Shipper: No assistants. Preoperative Diagnoses: Menorrhagia (AUB-L), dysmenorrhea, and premenstrual dysphoric disorder. Postoperative Diagnoses: Menorrhagia (AUB-L), dysmenorrhea, and premenstrual dysphoric disorder. Procedures Performed: Diagnostic hysteroscopy with endometrial ablation using NovaSure and diagnosti c laparoscopy with bilateral salpingectomy. Anesthesia: General endotracheal. Complications: No complications. Drains: No drains. Condition: Stable. Specimens: Bilateral tubes. Findings: Both tubes and ovaries were all mostly unremarkable. The uterine cavity length was 6.5, w idth 4.6, and power setting 164 brizuela and T equals 51 seconds for ablation. There was an excellent a blation effect once the procedure was completed with the hysteroscopy as it was visualized. Most of the intraperitoneal organs were unremarkable. No evidence of any endometriosis. Indications: The patient is a 43-year-old with menorrhagia and dysmenorrhea, evaluated with ultrasou nd and then with endometrial sampling that did not show any atypia or malignancy. Discussed about al l the different options including medical management with hormones, ablation IUD. The pat ient wanted to proceed with an ablation and with her dysmenorrhea, rule out any endometriosis and per form a bilateral salpingectomy. Once this was all consented, the patient was taken back to the OR. She was given 2 g of Ancef. SCDs were placed. Time-out was done. After general anesthesia was give n, she was placed in a dorsal lithotomy position using Chriss stirrups. Abdomen, vulva, vagina, and p erineum were prepped and draped in a sterile fashion. ChloraPrep was for the abdomen and Betadine fo r the lower part. Time-out was done. Arms were opposed. Positioning of the arms was checked. SCDs were started and procedure started. Procedure In Detail: Speculum was placed to expose the cervix. Anterior lip grasped with 2 Allis cl amps. The uterus was sounded to 10 cm, cervical length at 3.5, cavity length 6.5. It was determined and entered into the generator. The cervix was dilated to 18-South African and then the NovaSure device wa s introduced into it. After being primed, the fan was deployed and cavity measurements were entered into the generator. The os was occluded with occluder. On doing the cavity integrity test, there wa s an air leak. So, the cervix was clamped with another Allis clamp to narrow the external os and pre vent escape of the gas. cavity integrity test was passed, I started the ablation cycle. There was 1 interruption at 44 seconds with the gas leak, which was quickly adjusted by repositioning the tool at the cervix a nd the rest of the ablation cycle was completed without any problems. Diagnostic slimline hysteroscope was introduced into the uterine cavity and visualized. There was ex cellent ablation effect. The scope was removed. A diagnostic uterine manipulator was introduced and fixed in place. Britt was placed to drain the bladder and attached to a drainage bag. 1 cm infraumbilical curve in the midline was made through the skin, subcutaneous tissue, and fascia, which was tagged with 0 Vicryl sutures. Peritoneum entered bluntly. S-retractor was placed and afte r adequate insufflation, the site of entry was checked after the Christiano was placed. A 5 mm left lowe r quadrant suprapubic port was placed under direct vision after injecting with 0.25% Marcaine at skin and fascia at all 3 sites. The pelvic cavity was surveyed. Absent gallbladder on the top. The liver, diaphragmatic surfaces, o mentum all appeared to be completely unremarkable so as the ovaries and the uterus. LigaSure device was used to takedown the tubes and once these were handed out for permanent pathology, all the trocar s were removed, gas was desufflated after thorough irrigation and suction were performed. The Christiano was removed. The site of entry at the level of the fascia was closed with the help of 0 Vicryl sutu res tagged on the edges, tied to each other and an interrupted 5-0 Monocryl for skin closure interrup lois at all incision sites. Steri-Strips and bandages were placed. Britt was removed. Manipulator w as removed. She was recovered from anesthesia and taken to the PACU in stable condition. She will h ave a 1-week followup appointment and a 3-month appointment. BUBBA/ECHO Voice ID: [id number] Report ID: [id number]
[2023-05-28 11:29] VITALS: BP 130/80
== END 2023-05-28 10:30 | disposition home or self-care (01) ==
LOC: OR 06:04
PROVIDERS: ATTEND Obstetrics & Gynecology
PROC: 0UT74ZZ Resection of Bilateral Fallopian Tubes, Percutaneous Endoscopic Approach (ICD-10-PCS; 2023-05-28)
PROC: 0U5B8ZZ Destruction of Endometrium, Via Natural or Artificial Opening Endoscopic (ICD-10-PCS; principal; 2023-05-28 07:00)
DX: N92.1 Excessive and frequent menstruation with irregular cycle (principal); N94.6 Dysmenorrhea, unspecified; N94.3 Premenstrual tension syndrome; E66.9 Obesity, unspecified; Z68.34 Body mass index [BMI] 34.0-34.9, adult
CPT/HCPCS: 85025; 36415; 86900; 86850; 84703; 86901; 88302; 81003; 58563; 58661; J2704; J1100; J2001; J1170; 88305

== ENCOUNTER 2024-10-12 16:05 | Emergency (ER) | payer BC ==
--- OUTSIDE RECORDS SUMMARY | 2024-10-12 16:07 | XMS REPORT | Continuity of Care Document ---
Author Name Unknown Address [address] [place] [address] [facility] Address [address] [place] [address] Care Team Providers Care De Icer Installer Name Role Phone Pcp, Patient Does Not Have A Primary Care Physic tia Agueda Flanagan Attending Clinician Unavailable [email or web address] Attending Clinician Unavaila ble Doctor Unassigned, [place] Attending Clinician U navailable Lab, Adc Fam Pob I Attending Clinician Unavailab Jacque Rosales Attending Clinician [phone] JACQUE MOORE Attending Clinician Unavailable [email or web address] Admitting Clinician Unavaila ble Payers Payer Name Policy Type Policy Number Effective Date Expirati on Date Source [place] [id number] 2021 00:00:00 AETNA C1 [id number] Common [facility] AETNA C1 [id number] Common [facility] CIGNA II [id number] 2019 00:00:00 AETNA C1 [id number] Common [facility] Problems Condition Name Condition Details Condition Category Status Onset Date Resolution Date Last Treatment Date Treating Clinician Comments Source Obesity Obesity Problem Active 2022-07 00:00: 00 [facility] Dysmenorrh ea Dysmenorrh ea Problem Active 2022-07 00:00: 00 [facility] Premenstru al tension syndrome Premenstru al Tension Syndrome Problem Active 2022-07 00:00: 00 [facility] Premenstru al dysphoric disorder Premenstru al Dysphoric Disorder Problem Active 2022-07 00:00: 00 [facility] Excessive and frequent menstruati on Excessive and Frequent Menstruati on Problem Active 2022-07 00:00: 00 [facility] Excessive menstruati on with irregular cycle Excessive Menstruati on with Irregular Cycle Problem Active 2022-07 00:00: 00 [facility] Body mass index 30+ - obesity Body Mass Index 30+ - Obesity Problem Active 12-19 00:00: 00 [facility] Simple obesity Simple Obesity Problem Active 12-19 00:00: 00 [facility] Screening mammograph y Screening Mammograph y Problem Active 12-19 00:00: 00 [facility] Gynecologi germania examinatio n abnormal Gynecologi germania Examinatio n Abnormal Problem Active 12-19 00:00: 00 [facility] Allergies, Adverse Reactions, Alerts Allergy Name Allergy Type Status Severity Reaction(s) Onset Date Inactive Date Treating Clinician Comments Source No Known Contrast Allergie s DA Active U 08-06 00:00: 00 [facility] No Known Food Allergie s DA Active U 08-06 00:00: 00 [facility] No Known Other Allergie s DA Active U 08-06 00:00: 00 [facility] BACTRIM DA Active U THROAT SWELLED A CHILD 08-06 00:00: 00 [facility] sulfamet hoxazole DA Active U 2003-07 00:00: 00 [facility] trimetho prim DA Active U 2003-07 00:00: 00 [facility] NO KNOWN ALLERGIE S Drug Class Active [facility] Bactrim Allergy to substanc e Active [facility] Medical Social History Social Habit Start Date Stop Date Quantity Comments Source Sexual orientation U [facility] History of Tobacco Use [facility] Sex Assigned At [facility] Exposure to SARS-CoV-2 (event) 2020-01-31 00:00:00 2020-03-01 14:17:00 Not sure [facility] Smoking Status Start Date Stop Date Source Never Smoker [facility] Tobacco smoking consumption unknown [facility] Medications Ordered Medication Name Filled Medication Name Start Date Stop Date Current Medication? Ordering Clinician Indication Dosage Frequency Signature (SIG) Comments Components Source bupropion HCl XL 300 mg 24 hr tablet, extended release TAKE ONE (1) TABLET(S) BY MOUTH EVERY MORNING. bupropion HCl XL 300 mg 24 hr tablet, extended release TAKE ONE (1) TABLET(S) BY MOUTH EVERY MORNING. No bupropion HCl XL 300 mg 24 hr tablet, extended release TAKE ONE (1) TABLET(S) BY MOUTH EVERY MORNING. [facility] ibuprofen as needed ibuprofen as needed No ibuprofen as needed [facility] montelukast 10 mg tablet as needed for seasonal allergies montelukast 10 mg tablet as needed for seasonal allergies No montelukas t 10 mg tablet as needed for seasonal allergies [facility] Wellbutrin XL 300 MG Wellbutrin XL 300 MG No 1{table t_in_th e_morni ng} QD Wellbutrin XL 300 MG Wellbutrin XL 300 MG Wellbutrin XL 300 MG No 1{table t_in_th e_morni ng} QD Wellbutrin XL 300 MG Vital Signs Vital Name Observation Time Observation Value Comments S ace Body Weight 2023-09-25 00:00:00 201 [lb_av] [facility] BP Systolic 2023-09-25 00:00:00 139 mm[Hg] [facility] BP Diastolic 2023-09-25 00:00:00 85 mm[Hg] [facility] Height 2023-09-25 00:00:00 63 [in_i] [facility] BMI (Body Mass Index) 2023-09-25 00:00:00 35.6 kg/m2 [facility] height 2020-11-20 14:30:00 63 [in_i] Commo n [facility] weight 2020-11-20 14:30:00 183.0 [lb_av] Co mmon [facility] bmi 2020-11-20 14:30:00 32.41 kg/m2 Comm on [facility] blood pressure systolic 2020-11-20 14:30:00 132 mm[Hg] Common [facility] blood pressure diastolic 2020-11-20 14:30:00 72 mm[Hg] Common [facility] height 2020-10-23 08:30:00 63 [in_i] Commo n [facility] weight 2020-10-23 08:30:00 286 [lb_av] Comm on [facility] bmi 2020-10-23 08:30:00 50.66 kg/m2 Comm on [facility] blood pressure systolic 2020-10-23 08:30:00 127 mm[Hg] Common [facility] blood pressure diastolic 2020-10-23 08:30:00 76 mm[Hg] [facility] Procedures Procedure Date / Time Performed Performing Clinicia n Source Hysteroscopy 2023-05-28 00:00:00 [facility] Hyster[facility] Biopsy 2023-04-24 00:00:00 [facility] Cholecystectomy (Gallbladder) 2018-07-13 00:00:00 [facility] Encounters Start Date/Time End Date/Time Encounter Type Admission Type Attending [facility] Care Facility Care Department Encounter ID Source 2021-08-07 12:51:00 Outpatient Agueda Flanagan [facility] [id number] [facility] 2021-08-07 12:50:55 Outpatient Agueda Flanagan [facility] [id number] [facility] 2023-09-25 00:00:00 2023-09-25 00:00:00 RHINA Barnhart: Gamaliel Stewart, [address] [address], [place] [address] , Ph. Critical access hospital - [facility]BZW_[facility]* [id number] [facility] 2023-08-04 00:00:00 2023-08-04 00:00:00 Outpatient GC_GCBZW_Ka diyala_S PRIV PRIV [id number] [facility] 2023-06-29 00:00:00 2023-06-29 00:00:00 Outpatient [facility]_GCBZ[facility]_Ka di[place]ala_S PRIV PRIV [id number] [facility] 2023-06-03 00:00:00 2023-06-03 00:00:00 Outpatient [facility]_GCBZW_[facility] di[facility]_S PRIV PRIV [id number] [facility] 2023-05-15 00:00:00 2023-05-15 00:00:00 Outpatient GC_GCBZW_Ka diyala_S PRIV PRIV [id number] [facility] 2023-05-15 00:00:00 2023-05-15 00:00:00 Outpatient GC_GCBZW_Ka diyala_S PRIV PRIV [id number] [facility] 2023-05-15 00:00:00 2023-05-15 00:00:00 Outpatient GC_GCBZW_Ka diyala_S PRIV PRIV [id number] [facility] 2023-05-04 00:00:00 2023-05-04 00:00:00 Outpatient GC_GCBZW_Ka diyala_S PRIV PRIV [id number] [facility] 2023-04-25 00:00:00 2023-04-25 00:00:00 Outpatient GC_GCBZW_Ka di[place]ala_S PRIV PRIV [id number] [facility] 2023-04-25 00:00:00 2023-04-25 00:00:00 Outpatient GC_GCBZW_Ka diyala_S PRIV PRIV [id number] [facility] 2023-04-25 00:00:00 2023-04-25 00:00:00 Outpatient GC_GCBZW_Ka diyala_S PRIV PRIV [id number] [facility] 2023-04-24 00:00:00 2023-04-24 00:00:00 Outpatient GC_GCBZW_Ka diyala_S PRIV PRIV [id number] [facility] 2023-02-03 00:00:00 2023-02-03 00:00:00 Outpatient GC_GCBZW_Ka diyala_S PRIV PRIV [id number] [facility] 2023-02-02 00:00:00 2023-02-02 00:00:00 Outpatient GC_GCBZW_Ka diyala_S PRIV PRIV [id number] [facility] 2023-01-28 00:00:00 2023-01-28 00:00:00 Outpatient GC_GCBZW_Ka diyala_S PRIV PRIV [id number] [facility] 2020-11-29 00:00:00 2020-11-29 00:00:00 (TEL) STLMLC STLMLC [id number] [facility] 2020-11-20 00:00:00 2020-11-20 00:00:00 OFFICE VISIT EST PT LEVEL 3 STLMLC STLMLC [id number] [facility] 2020-11-19 09:15:00 2020-11-19 09:15:00 Outpatient [facility] [id number] [facility] 2020-11-17 09:15:00 2020-11-17 09:15:00 Outpatient [facility] [id number] [facility] 2020-10-27 09:00:00 2020-10-27 09:00:00 Outpatient [facility] [id number] [facility] 2020-10-23 00:00:00 2020-10-23 00:00:00 OFFICE VISIT NEW PT LEVEL 3 STLMLC STLMLC [id number] [facility] 2020-07-09 19:00:00 2020-07-09 19:00:00 Outpatient [facility] [id number] [facility] 2020-03-02 00:00:00 2020-03-02 00:00:00 Patient Secure Msg Doctor Unassigned, [place] [facility] [id number] [facility] 2020-03-01 14:04:36 2020-03-01 14:21:17 Laboratory Only Lab, [facility] [address] [id number] 2020-03-01 14:04:36 2020-03-01 14:21:17 Laboratory Only Lab, [facility] Fam Pob I Jacque Moore [facility] [address] [id number]..[id number] [facility] 2020-03-01 14:00:00 2020-03-01 14:00:00 Outpatient JACQUE ROMERO [facility] [id number] [facility]
[2024-10-12] MEDS ORDERED: dexAMETHasone 10 MG/ML VIAL ONE (16:22)
--- NOTE | 2024-10-12 16:23 | EDPHYS ---
Physician Documentation [facility] Name: Audrey Obando Age: 44 yrs Sex: Female : 1980 Arrival Date: 10/12/2024 Time: 16:05 Bed 9 Private MD: ED Physician Addison Ricks HPI: 10/12 17:20 This 44 yrs old Female presents to ER via Ambulatory with complaints of Sore dr5 Throat, blisters. 17:20 The patient presents with sore throat. Patient is a 44-year-old female with history of dr5 anxiety coming in with sore throat and blisters in mouth that started on Thursday. Patient was diagnosed with strep throat at local urgent care. Patient was prescribed ibuprofen, viscous lidocaine, and amoxicillin and symptoms not improving.. 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 - Infectious Disease History:: Denies. - Social history:: Smoking status: unknown. ROS: 17:20 Constitutional: as per hpi dr5 Exam: 17:20 Constitutional: This is a well developed, well nourished patient who is awake, alert, dr5 and in no acute distress. Head/Face: Normocephalic, atraumatic. Eyes: Pupils equal round and reactive to light, extra-ocular motions intact. Lids and lashes normal. Conjunctiva and sclera are non-icteric and not injected. Cornea within normal limits. Periorbital areas with no swelling, redness, or edema. Neck: Trachea midline, no thyromegaly or masses palpated, and no cervical lymphadenopathy. Supple, full range of motion without nuchal rigidity, or vertebral point tenderness. No Meningismus. Chest/axilla: Normal chest wall appearance and motion. Nontender with no deformity. No lesions are appreciated. Cardiovascular: Regular rate and rhythm with a normal S1 and S2. Normal PMI, no JVD. No pulse deficits. Respiratory: Lungs have equal breath sounds bilaterally, clear to auscultation. No rales, rhonchi or wheezes noted. No increased work of breathing, no retractions or nasal flaring. Back: No spinal tenderness. No costovertebral tenderness. Full range of motion. Skin: Warm, dry with normal turgor. Normal color with no rashes, no lesions, and no evidence of cellulitis. Neuro: Awake and alert, GCS 15, oriented to person, place, time, and situation. Cranial nerves II-XII grossly intact. Motor strength 5/5 in all extremities. Sensory grossly intact. Cerebellar exam normal. Normal gait. 17:20 ENT: Posterior pharynx: Airway: normal, Tonsils: enlarged on the right, enlarged on the left, with exudate, Uvula: normal, Blisters noted on upper gums., Vital Signs: 16:18 BP 130 / 97; Pulse 89; Resp 18; Temp 99.6; Pulse Ox 100% on R/A; Weight 83.91 kg; iw Height 5 ft. 3 in. ; Pain 8/10; 16:18 Body Mass Index 32.77 (83.91 kg, 160.02 cm) iw 16:18 Pain Scale: Adult iw MDM: 16:15 Medical Screening Exam initiated dr5 17:21 Differential diagnosis: Allergic rhinitis, epiglottitis, laryngitis, uvulitis. Data dr5 reviewed: vital signs, nurses notes. I considered the following discharge prescriptions or medication management in the emergency department Medications were administered in the Emergency Department. See MAR. Care significantly affected by the following chronic conditions: Anxiety. Care significantly affected by the following Social Determinants of Health: Poor access to healthcare and/or lack of insurance, Poor access to transportation, Problems related to employment. Counseling: I had a detailed discussion with the patient and/or guardian regarding the historical points, exam findings, and any diagnostic results supporting the discharge/admit diagnosis, the presence of at least one elevated blood pressure reading (>120/80) during this emergency department visit, lab results, the need for outpatient follow up, for definitive care, an ENT specialist, a family practitioner, to return to the emergency department if symptoms worsen or persist or if there are any questions or concerns that arise at home. ED course: 10 mg of dexamethasone IM given in ER. Will give low-dose prednisone daily for the next 5 days. Changed antibiotic to cefpodoxime. Will have patient follow-up with ENT this week. Strict ER precautions given. Patient is well-appearing on discharge.. 10/12 16:23 Order name: Group A Streptococcus Rapid; Complete Time: 17:21 dr5 Administered Medications: 16:34 Drug: Dexamethasone IM 10 mg IM once Route: IM; Site: right gluteus; ll1 16:34 Follow up: Response: No adverse reaction ll1 Disposition: 17:25 I was immediately available on-site in the Emergency Department for consultation in the ms3 care of the patient. Disposition Summary: 10/12/24 16:23 Discharge Ordered Notes: Location: Home dr5 Condition: Stable dr5 Diagnosis - Streptococcal pharyngitis dr5 Followup: dr5 - With: Emergency Department - When: As needed - Reason: Worsening of condition Followup: dr5 - With: Private Physician - When: 1 - 2 days - Reason: Recheck today's complaints, Continuance of care, Re-evaluation by your physician Discharge Instructions: - Discharge Summary Sheet dr5 - Strep Throat, Adult, [id number] dr5 Forms: - Work release form dr5 - Medication Reconciliation Form dr5 - Antibiotic Education dr5 - Patient Portal Instructions dr5 - Leadership Thank You Letter dr5 Prescriptions: - Prednisone 20 mg Oral Tablet - take 1 tablet ORAL route once daily for 5 days; 5 tablet; Refills: 0, Product dr5 Selection Permitted - cefpodoxime 100 mg Oral tablet - take 1 tablet ORAL route every 12 hours for 7 days take with food; 14 tablet; dr5 Refills: 0, Product Selection Permitted Signatures: Dispatcher [employer] Alda Wallis RN RN iw Terry Knight RN RN ll1 Addison Ricks DO DO ms3 Cb Bernal, AMANDA-C RN LACTATION CONSULTANT-Cdr5
--- NOTE | 2024-10-12 16:23 | ER ---
Nurse's Notes [facility] Name: Audrey Obando Age: 44 yrs Sex: Female : 1980 Arrival Date: 10/12/2024 Time: 16:05 Bed 9 Private MD: Diagnosis: Streptococcal pharyngitis Presentation: 10/12 16:16 Chief complaint: Patient states: was diagnosed with strep throat on Thursday , now she iw has blisters all over her mouth. Coronavirus screen: At this time, the client does not indicate any symptoms associated with coronavirus-19. Ebola Screen: No symptoms or risks identified at this time. Initial Sepsis Screen: Does the patient meet any 2 criteria? No. Patient's initial sepsis screen is negative. Does the patient have a suspected source of infection? No. Patient's initial sepsis screen is negative. Risk Assessment: Do you want to hurt yourself or someone else? Patient reports no desire to harm self or others. 16:16 Method Of Arrival: Ambulatory iw 16:16 Acuity: SAKINA 4 iw 16:49 Onset of symptoms was October 07, 2024. ll1 Triage Assessment: 16:35 General: Appears in no apparent distress. Behavior is calm, cooperative. 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 - Infectious Disease History:: Denies. - Social history:: Smoking status: unknown. Screenin:35 [facility] ED Fall Risk Assessment (Adult) History of falling in the last 3 months, ll1 including since admission No falls in past 3 months (0 pts) Confusion or Disorientation No (0 pts) Intoxicated or Sedated No (0 pts) Impaired Gait No (0 pts) Mobility Assist Device Used No (0 pt) Altered Elimination No (0 pt) Score/Fall Risk Level 0 - 2 = Low Risk Maintained a safe environment, Hourly rounding (assess needs \T\ fall precautionary measures) done. Abuse screen: Denies threats or abuse. Nutritional screening: No deficits noted. Tuberculosis screening: No symptoms or risk factors identified. Assessment: 16:35 Reassessment: No changes from previously documented assessment. Patient and/or family ll1 updated on plan of care and expected duration. Pain level reassessed. Patient is alert, oriented x 3, equal unlabored respirations, skin warm/dry/pink. 16:35 Pain: Denies pain. Respiratory: Airway is patent Respiratory effort is even, unlabored. ll1 EENT: Throat is reddened. 16:35 Respiratory: Breath sounds are clear bilaterally. ll1 Vital Signs: 16:18 BP 130 / 97; Pulse 89; Resp 18; Temp 99.6; Pulse Ox 100% on R/A; Weight 83.91 kg; iw Height 5 ft. 3 in. ; Pain 8/10; 16:18 Body Mass Index 32.77 (83.91 kg, 160.02 cm) iw 16:18 Pain Scale: Adult iw ED Course: 16:11 Patient arrived in ED. al6 16:14 [facility] Bernal F[facility]-C [facility] 16:14 Addison Ricks DO is Attending Physician. dr5 16:16 Triage completed. iw 16:35 Arm band placed on. ll1 16:35 Patient has correct armband on for positive identification. Provided Education on: ll1 finish prescribed antibiotics. 16:35 No provider procedures requiring assistance completed. Patient did not have IV access ll1 during this emergency room visit. Administered Medications: 16:34 Drug: Dexamethasone IM 10 mg IM once Route: IM; Site: right gluteus; ll1 16:34 Follow up: Response: No adverse reaction ll1 Medication: 16:35 VIS not applicable for this client. ll1 Outcome: 16:23 Discharge ordered by . dr5 16:35 Patient left the ED. ll1 16:35 Discharged to home ambulatory, ll1 16:35 Condition: stable 16:35 Discharge instructions given to patient, Instructed on discharge instructions, follow up and referral plans. medication usage, Demonstrated understanding of instructions, follow-up care, medications, Prescriptions given X 2, Signatures: Alda Garcia RN RN iw Terry Knight RN RN ll1 Cb Bernal FNP-C [employer] M[employer] OPERATOR-Cdr5 Priyanka Boo al6 Corrections: (The following items were deleted from the chart) 16:19 16:18 Resp 18bpm; Temp 99.6F; 83.91 kg; Height 5 ft. 3 in.; BMI: 32.7; Pain 8/10, iw Adult; iw
[2024-10-12 16:51] VITALS: BP 130/97; TEMP 99.6; O2SAT 100
== END 2024-10-12 16:35 | disposition home or self-care (01) ==
LOC: ER 16:05
DX: J02.0 Streptococcal pharyngitis (principal)
CPT/HCPCS: 87070; 36415; 96372; 99284; J1100